=== PATIENT | male | born 1950 | race African-American/Black ===

== ENCOUNTER 2018-02-28 18:59 | Inpatient (IN) | payer MEDICARE, MEDICAID ==
[~2018-02-28] VITALS: Ht 165.1 cm; Wt 85.1 kg
[2018-02-28 22:00] VITALS: BP 136/78
[2018-02-28] MEDS ORDERED: MORPHINE SULFATE 4 MG/ML SYR/VIAL IV PRN (22:30)
[2018-02-28] MEDS ORDERED: hydrALAZINE HCL 20 MG/ML VL IV PRN (22:30)
[2018-02-28] MEDS ORDERED: HYDROcodone-ACET 5/325MG TAB PO PRN (22:30)
[2018-02-28] MEDS ORDERED: NITROGLYCERIN 0.4 MG SL TAB SL PRN (22:30)
[2018-02-28] MEDS ORDERED: ACETAMINOPHEN 325 MG TAB PO PRN (22:30)
[2018-03-01] MEDS ORDERED: CLON1TAB4 PO (02:58)
[2018-03-01] MEDS ORDERED: DIVA500T53 PO (02:58)
[2018-03-01] MEDS ORDERED: TRAZ100T2 PO (02:58)
[2018-03-01] MEDS ORDERED: ARIP1TAB7 PO (02:58)
[2018-03-01] MEDS ORDERED: DULO60CA PO (02:58)
[2018-03-01 05:00] VITALS: BP 143/83
[2018-03-01 08:00] VITALS: BP 142/81
[2018-03-01 09:00] VITALS: BP 142/81
[2018-03-01] MEDS: clonazePAM 0.5 MG TAB PO SCH ×2 (10:00→20:48)
[2018-03-01] MEDS: ENOXAPARIN SOD 40 MG/0.4 ML SYRINGE SC SCH (10:00)
[2018-03-01] MEDS: DULoxetine HCL 30 MG CAP PO SCH ×2 (10:26→20:48)
[2018-03-01 13:00] VITALS: BP 148/90
[2018-03-01] MEDS ORDERED: LORazepam 2MG/ML-1ML VIAL IV PRN (16:00)
[2018-03-01 17:00] VITALS: BP 129/81
[2018-03-01 19:24] LABS: Basophils # (auto) 0.1 uL; Eosinophils # (auto) 0 uL; Eosinophils % (auto) 0.1 % (0.0-7.0); Hematocrit 45.4 % (41.0-53.0); Hemoglobin 15.3 g/dL (13.5-17.5); Lymphocytes % (auto) 25.8 % (10.0-50.0); Mean Corpuscular Hemoglobin 31.5 pg (28.0-32.0); Mean Corpuscular Hgb Conc. 33.7 g/dL (32.0-36.0); Mean Corpuscular Volume 93.5 fL (80.0-100.0); Monocytes # (auto) 0.7 uL; Monocytes % (auto) 9.3 % (0.0-12.0); Neutrophils % (auto) 63.8 % (37.0-80.0); Nucleated Red Blood Cells % 0.1 %; Platelet Count (auto) 273 10^3/uL (140-450); Red Blood Cells 4.86 10^6/uL (4.5-5.90); Red Cell Distribution Width 14.5 % (11.8-14.3); White Blood Cell 7.8 10^3/uL (4.4-10.8)
[2018-03-01 19:41] LABS: Calcium 8.8 mg/dL (8.5-10.1)
[2018-03-01 19:43] LABS: BUN/Creatinine Ratio 12.4
[2018-03-01 19:47] LABS: Bilirubin, Total 0.7 mg/dL (0.2-1.0); Total Protein 8.6 g/dL (6.4-8.2)
[2018-03-01 19:48] LABS: Folate (Folic Acid) 9.92 ng/mL (5.38-24)
[2018-03-01 22:00] VITALS: BP 140/84
[2018-03-01] MEDS: traZODone HCL 50 MG TAB PO SCH (22:00)
[2018-03-02 05:00] VITALS: BP 126/76
[2018-03-02 08:00] VITALS: BP 136/75
[2018-03-02 09:00] VITALS: BP 136/75
[2018-03-02] MEDS: clonazePAM 0.5 MG TAB PO SCH ×2 (10:00→22:00)
[2018-03-02] MEDS: ENOXAPARIN SOD 40 MG/0.4 ML SYRINGE SC SCH (10:00)
[2018-03-02] MEDS: DULoxetine HCL 30 MG CAP PO SCH ×2 (10:42→22:07)
[2018-03-02 13:00] VITALS: BP 153/96
[2018-03-02 18:23] VITALS: BP 141/82
[2018-03-02 22:00] VITALS: BP 148/92
[2018-03-02] MEDS: traZODone HCL 50 MG TAB PO SCH (23:28)
[2018-03-03 05:00] VITALS: BP 138/71
[2018-03-03 08:00] VITALS: BP 118/80
[2018-03-03 08:58] VITALS: BP 118/80
[2018-03-03] MEDS: DULoxetine HCL 30 MG CAP PO SCH ×2 (09:16→22:51)
[2018-03-03] MEDS: clonazePAM 0.5 MG TAB PO SCH ×2 (09:17→22:51)
[2018-03-03] MEDS: ENOXAPARIN SOD 40 MG/0.4 ML SYRINGE SC SCH (09:17)
[2018-03-03 13:00] VITALS: BP 149/95
[2018-03-03] MEDS ORDERED: clonazePAM 0.5 MG TAB PO ONE (13:15)
[2018-03-03 17:00] VITALS: BP 123/80
[2018-03-03 21:57] VITALS: BP 131/77
[2018-03-03] MEDS: traZODone HCL 50 MG TAB PO SCH (22:51)
[2018-03-03] MEDS: OLANZapine 5 MG TAB PO SCH (22:52)
[2018-03-04 05:07] VITALS: BP 109/62
[2018-03-04 07:50] VITALS: BP 112/70
[2018-03-04 08:00] VITALS: BP 112/70
[2018-03-04] MEDS: DULoxetine HCL 30 MG CAP PO SCH (09:53)
[2018-03-04] MEDS: ENOXAPARIN SOD 40 MG/0.4 ML SYRINGE SC SCH (09:54)
[2018-03-04] MEDS: clonazePAM 0.5 MG TAB PO SCH (10:00)
[2018-03-04] MEDS: OLANZapine 5 MG TAB PO SCH (10:00)
[2018-03-04 11:35] VITALS: BP 135/79
[2018-03-04 16:43] VITALS: BP 125/63
== END 2018-03-04 17:40 | DRG 309 ==
LOC: CENTRAL 18:59 → TELE-CENTR 03-02 20:15
PROVIDERS: ADMIT Internal Medicine; ATTEND Internal Medicine
DX: R00.1 Bradycardia, unspecified (principal); I50.22 Chronic systolic (congestive) heart failure; I11.0 Hypertensive heart disease with heart failure; I45.10 Unspecified right bundle-branch block; M41.9 Scoliosis, unspecified; R19.7 Diarrhea, unspecified; F25.9 Schizoaffective disorder, unspecified; E11.42 Type 2 diabetes mellitus with diabetic polyneuropathy; I08.0 Rheumatic disorders of both mitral and aortic valves; M54.5 Low back pain; R41.82 Altered mental status, unspecified; J44.9 Chronic obstructive pulmonary disease, unspecified; Z79.899 Other long term (current) drug therapy; Z83.3 Family history of diabetes mellitus; Z86.73 Personal history of transient ischemic attack (TIA), and cerebral infarction without residual deficits; Z87.891 Personal history of nicotine dependence; Z79.84 Long term (current) use of oral hypoglycemic drugs
CPT/HCPCS: 36415; 80053; 82140; 82607; 82746; 84443; 85025; 87045; 87081; 87493; 87899; 93005; 93306; 97163; A6257